=== PATIENT | male | born 1970 | race African-American/Black ===

== ENCOUNTER 2018-07-18 07:25 | Emergency (ER) | payer OTHER ==
[~2018-07-18] VITALS: Ht 172.7 cm; Wt 68.0 kg
[2018-07-18 08:15] VITALS: BP 142/95
== END 2018-07-18 08:24 | disposition home or self-care (01) ==
LOC: EMS 07:27
DX: H10.9 Unspecified conjunctivitis (principal); J06.9 Acute upper respiratory infection, unspecified; F17.210 Nicotine dependence, cigarettes, uncomplicated
CPT/HCPCS: 99283; 99406

== ENCOUNTER → 2018-10-19 | Emergency (ER) | payer OTHER ==
[~2018-10-19] VITALS: Ht 175.3 cm; Wt 75.0 kg
[2018-10-19 09:15] LABS: APPEARANCE,URINE CLEAR (CLEAR); BILIRUBIN,URINE NEGATIVE (NEGATIVE); GLUCOSE, URINE (UA) NEGATIVE (NEGATIVE); KETONES,URINE NEGATIVE (NEGATIVE); LEUKOCYTE ESTERASE ,URINE NEGATIVE (NEGATIVE); NITRATE,URINE NEGATIVE (NEGATIVE); OCCULT BLOOD,URINE NEGATIVE (NEGATIVE); PROTEIN,URINE NEGATIVE (NEGATIVE); UROBILINOGEN,URINE 0.2 mg/dL (<=1.0)
[2018-10-19 12:23] VITALS: BP 145/104
== END | disposition home or self-care (01) ==
LOC: EMS 08:42
DX: R30.0 Dysuria (principal); R30.9 Painful micturition, unspecified

== ENCOUNTER 2019-07-14 10:00 | Emergency (ER) | payer OTHER ==
[~2019-07-14] VITALS: Ht 170.2 cm; Wt 72.7 kg
[2019-07-14 12:21] VITALS: BP 148/99
== END 2019-07-14 12:30 | disposition home or self-care (01) ==
LOC: EMS 10:01
DX: L08.9 Local infection of the skin and subcutaneous tissue, unspecified (principal); M79.675 Pain in left toe(s); Z98.890 Other specified postprocedural states

== ENCOUNTER 2019-08-13 08:54 | Emergency (ER) | payer OTHER ==
[~2019-08-13] VITALS: Ht 177.8 cm; Wt 80.9 kg
[2019-08-13 09:22] VITALS: BP 162/99
== END 2019-08-13 10:03 | disposition home or self-care (01) ==
LOC: EMS 08:55
DX: L84 Corns and callosities (principal)

== ENCOUNTER 2021-02-02 08:02 | Emergency (ER) | payer OTHER ==
[~2021-02-02] VITALS: Ht 175.3 cm; Wt 59.1 kg
[2021-02-02 09:21] LABS: BASOPHILS % (AUTO) 0.8 % (0.0-2.0); EOSINOPHILS % (AUTO) 1.5 % (1.0-6.0); HEMATOCRIT 40.1 % (41-53); HEMOGLOBIN 13.2 g/dL (13.5-17.5); LYMPHOCYTES # (AUTO) 0.8 K/uL (1.0-4.8); LYMPHOCYTES % (AUTO) 28.9 % (22.0-44.0); MEAN CORPUSCULAR HGB CONC 32.8 G/dL (31.0-37.0); MEAN CORPUSCULAR VOLUME 91 fL (80-100); MONOCYTES # (AUTO) 0.4 K/uL (0.1-1.0); MONOCYTES % (AUTO) 13.9 % (2.0-9.0); NEUTROPHILS # (AUTO) 1.4 K/uL (1.8-7.7); NEUTROPHILS % (AUTO) 54.9 % (40.0-70.0); PLATELET COUNT (AUTO) 236 K/uL (150-450); RED BLOOD CELL COUNT(AUTO) 4.39 MIL/uL (4.50-5.90); RED CELL DISTRIBUTION WIDTH 13.5 % (11.5-14.5)
[2021-02-02] MEDS ORDERED: CYCLOBENZAPRINE HCL 10 MG TABLET PO ONE (09:30)
[2021-02-02] MEDS ORDERED: LIDOCAINE 5% TRANSDERMAL PATCH TD ONE (09:30)
[2021-02-02 09:32] LABS: ANION GAP 9 mmol/L (8-16); CALCIUM, TOTAL 9.2 mg/dL (8.8-10.5); CARBON DIOXIDE 28 mmol/L (22-29); CHLORIDE 102 mmol/L (98-107); CREATININE 0.73 mg/dL (0.60-1.30); GLOMERULAR FILTR. RATE CALC > 60 mL/min (>60); GLUCOSE,RANDOM 88 mg/dL (70-110); POTASSIUM 4.1 mmol/L (3.5-5.1); SODIUM SERUM 139 mmol/L (136-145); UREA NITROGEN, BLOOD 9 mg/dL (7-18)
[2021-02-02 09:33] LABS: APPEARANCE,URINE CLEAR (CLEAR); BILIRUBIN,URINE NEGATIVE (NEGATIVE); GLUCOSE, URINE (UA) NEGATIVE (NEGATIVE); KETONES,URINE NEGATIVE (NEGATIVE); LEUKOCYTE ESTERASE ,URINE NEGATIVE (NEGATIVE); NITRATE,URINE NEGATIVE (NEGATIVE); OCCULT BLOOD,URINE NEGATIVE (NEGATIVE); PH,URINE 7.5 (5.0-8.0); PROTEIN,URINE NEGATIVE (NEGATIVE); UROBILINOGEN,URINE 0.2 mg/dL (<=1.0)
[2021-02-02 09:34] LABS: BACTERIA,URINE None Seen /HPF (None Seen); RBC,URINE None Seen /HPF (0-2); WBC,URINE None Seen /HPF (0-5)
[2021-02-02 09:35] LABS: ALANINE AMINOTRANSFERASE 86 U/L (12-78); ALBUMIN 3.9 g/dL (3.4-5.0); ALKALINE PHOSPHATASE 68 U/L (46-116); ASPARTATE AMINOTRANSFERASE 134 U/L (15-37); BILIRUBIN,TOTAL 0.7 mg/dL (0.1-1.0); LIPASE 48 U/L (73-393); TOTAL PROTEIN, SERUM 7.5 g/dL (6.4-8.2)
[2021-02-02 10:22] VITALS: BP 156/108
== END 2021-02-02 11:16 | disposition home or self-care (01) ==
LOC: EMS 08:06
DX: M54.5 Low back pain (principal)
CPT/HCPCS: 80053; 81001; 83690; 85025; 99283

== ENCOUNTER 2023-05-28 10:16 | Emergency (ER) | payer OTHER ==
[~2023-05-28] VITALS: Ht 172.7 cm; Wt 72.7 kg
[2023-05-28 10:26] VITALS: TEMP 98.4
[2023-05-28] MEDS ORDERED: ACETAMINOPHEN 500 MG TABLET PO ONE (11:00)
[2023-05-28] MEDS ORDERED: IBUPROFEN 600 MG TABLET PO ONE (11:00)
[2023-05-28] MEDS ORDERED: IBUP-1492 PO (11:52)
[2023-05-28] MEDS ORDERED: ACET-3385 PO (11:52)
[2023-05-28 12:26] VITALS: BP 126/80; PULSE 85; RESP 18
== END 2023-05-28 12:28 | disposition home or self-care (01) ==
LOC: EMS 10:31
DX: S92.352A Displaced fracture of fifth metatarsal bone, left foot, initial encounter for closed fracture (principal); Z98.890 Other specified postprocedural states; V19.9XXA Pedal cyclist (driver) (passenger) injured in unspecified traffic accident, initial encounter; Y93.89 Activity, other specified; Y92.89 Other specified places as the place of occurrence of the external cause; Y99.8 Other external cause status
CPT/HCPCS: 29515; 99283

== ENCOUNTER 2023-09-06 05:50 | Emergency (ER) | payer OTHER ==
[~2023-09-06] VITALS: Ht 172.7 cm; Wt 68.2 kg
[~2023-09-06 05:50] MED LIST: ACET-3385 PO; IBUP-1492 PO
[2023-09-06 06:06] VITALS: TEMP 98
[2023-09-06] MEDS ORDERED: KETOROLAC TROMETHAMINE 30 MG/ML VIAL IM ONE (07:30)
[2023-09-06] MEDS ORDERED: LIDOCAINE 5% TRANSDERMAL PATCH TD ONE (07:30)
[2023-09-06] MEDS ORDERED: ACETAMINOPHEN 500 MG TABLET PO ONE (07:30)
[2023-09-06] MEDS ORDERED: IBUP-1492 PO (07:49)
[2023-09-06] MEDS ORDERED: LIDO700A15 TP (07:49)
[2023-09-06] MEDS ORDERED: ACET-3385 PO (07:49)
[2023-09-06 08:01] VITALS: BP 146/90; PULSE 74; RESP 16
== END 2023-09-06 09:36 | disposition home or self-care (01) ==
LOC: EMS 05:50
DX: S39.012A Strain of muscle, fascia and tendon of lower back, initial encounter (principal); F17.210 Nicotine dependence, cigarettes, uncomplicated; X58.XXXA Exposure to other specified factors, initial encounter; Y93.89 Activity, other specified; Y92.89 Other specified places as the place of occurrence of the external cause; Y99.8 Other external cause status
CPT/HCPCS: 99283; 96372; J1885